=== PATIENT | male | born 1950 ===

== ENCOUNTER 2016-09-27 09:53 | Emergency (ER) | payer MEDICAID, OTHER ==
[2016-09-27 10:04] VITALS: TEMP 98
[2016-09-27] MEDS ORDERED: Albuterol-Ipratrop 3 mg / 0.5 (3 ml) UD INH STA ×2 (10:12→12:07)
[2016-09-27] MEDS ORDERED: Albuterol-Ipratrop 3 mg / 0.5 (3 ml) UD ONE ×2 (10:32→12:31)
[2016-09-27 10:45] LABS: BASO # 0.1 K/uL (0.0-0.2); EOS # 1.3 K/uL (0.0-0.7); EOS % 16.1 % (0.0-4.0); HEMATOCRIT 46.4 % (35.0-51.0); LYMPH # 1.6 K/uL (1.0-4.3); LYMPH % 20.1 % (20.0-40.0); MEAN CELL VOLUME 94.8 fl (80.0-94.0); MEAN CORPUSCULAR HEMOGLOBIN 31.6 pg (27.0-31.0); MEAN CORPUSCULAR HGB CONC 33.4 g/dL (33.0-37.0); MEAN PLATELET VOLUME 9.4 fl (7.2-11.7); MONO # 0.6 K/uL (0.0-0.8); NEUT # 4.3 K/uL (1.8-7.0); NEUT % 54.8 % (50.0-75.0); NRBC % 0.1 % (0.0-0.0); RED CELL DISTRIBUTION WIDTH 12.9 % (11.5-14.5); WHITE BLOOD COUNT 7.8 K/uL (4.8-10.8)
[2016-09-27 10:52] LABS: ALB/GLOB RATIO 1.8 (1.0-2.1); ALKALINE PHOSPHATASE 56 U/L (38-126); ALT/SGPT 38 U/L (21-72); AST/SGOT 25 U/L (17-59); BLOOD UREA NITROGEN 21 mg/dl (9-20); CALCIUM 9.3 mg/dL (8.4-10.2); CARBON DIOXIDE 23 mmol/L (22-30); CHLORIDE 106 mmol/L (98-107); GFR AFRICAN-AMERICAN > 60; GLUCOSE,RANDOM 93 mg/dL (75-110); SODIUM 140 mmol/l (132-148)
[2016-09-27 10:54] LABS: POTASSIUM 4.4 MMOL/L (3.6-5.0)
[2016-09-27 11:17] LABS: RBC URINE 3 /hpf (0-3); URINE BILIRUBIN NEGATIVE (NEGATIVE); URINE BLOOD NEGATIVE (NEGATIVE); URINE COLOR YELLOW (YELLOW); URINE GLUCOSE (UA) NEG (Normal); URINE KETONE NEGATIVE (NEGATIVE); URINE LEUKOCYTE ESTERASE NEG Leu/uL (Negative); URINE PROTEIN NEGATIVE (NEGATIVE); URINE UROBILINOGEN 0.2-1.0 mg/dL (0.2-1.0); WBC URINE 1 /hpf (0-5)
--- NOTE | 2016-09-27 12:11 | ED PDOC ---
HPI: CCC, URI, Sore Throat Time Seen by Provider: 09/27/16 10:07 Chief Complaint (Nursing): Cough, Cold, Congestion Chief Complaint (Provider): Cough, Cold, Congestion History Per: Patient History/Exam Limitations: no limitations Onset/Duration Of Symptoms: Days (x1 week) Current Symptoms Are (Timing): Still Present Additional Complaint(s): 66 y/o male presents to the emergency department with a complaint of an ongoing cough, shortness of breath, chest tightness, and left arm paraesthesia x1 week. Denies medications for the relief of symptoms, fever, syncope, or hemoptysis. Past Medical History Reviewed: Historical Data, Nursing Documentation, Vital Signs Vital Signs: Last Vital Signs Temp 98 F 09/27/16 10:02 Pulse 66 09/27/16 10:02 Resp 20 09/27/16 10:02 BP 144/84 09/27/16 10:02 Pulse Ox 98 09/27/16 14:31 - Medical History PMH: Denies: Diabetes, HTN - Surgical History Surgical History: Appendectomy - Family History Family History: States: Unknown Family Hx - Living Arrangements Living Arrangements: With Family - Social History Current smoker - smoking cessation education provided: No Ex-Smoker (has not smoked in the last 12 months): Yes Alcohol: None Drugs: Denies - Home Medications Home Medications: Ambulatory Orders Medication Instructions Recorded Benzonatate [Tessalon Perle] 100 mg PO TID PRN #30 capsule 06/17/16 Guaifenesin/Pseudoephedrne HCl 1 ter PO Q12H PRN #20 ter 06/17/16 [Mucinex D 600 mg-60 mg] - Allergies Allergies/Adverse Reactions: Allergies Allergy/AdvReac Type Severity Reaction Status Date / Time penicillin G Allergy RASH Verified 09/27/16 10:01 Review of Systems ROS Statement: Except As Marked, All Systems Reviewed And Found Negative Constitutional: Negative for: Fever Cardiovascular: Positive for: Other (chest tightness) Respiratory: Positive for: Cough, Shortness of Breath. Negative for: Hemoptysis Musculoskeletal: Positive for: Other (Left arm paraesthesia ) Neurological: Negative for: Other (syncope) Physical Exam - Reviewed Nursing Documentation Reviewed: Yes Vital Signs Reviewed: Yes - Physical Exam Appears: Positive for: Non-toxic, No Acute Distress Head Exam: Positive for: ATRAUMATIC, NORMOCEPHALIC Skin: Positive for: Normal Color, Warm, Dry ENT: Positive for: Normal ENT Inspection. Negative for: Pharyngeal Erythema Neck: Positive for: Normal, Supple Cardiovascular/Chest: Positive for: Regular Rate, Rhythm. Negative for: Murmur Respiratory: Positive for: Wheezing (trace wheeze at b/l lung bases). Negative for: Accessory Muscle Use, Respiratory Distress Gastrointestinal/Abdominal: Positive for: Normal Exam, Soft. Negative for: Tenderness Extremity: Positive for: Normal ROM. Negative for: Pedal Edema Neurologic/Psych: Positive for: Alert, Oriented - Laboratory Results Result Diagrams: 09/27/16 10:38 09/27/16 10:38 - ECG O2 Sat by Pulse Oximetry: 98 (RA) Pulse Ox Interpretation: Normal Medical Decision Making Medical Decision Making: Time: 10:07 Initial impression: Cough Initial plan: --Chest Two X-ray (PA/LAT) (RAD) --Duoneb 3 mg/0.5 mg (3ml) UD --Peak Flow PRE/POST TX --Gave Duoneb with some improvement of symptoms. Troponin was ordered with a second duoneb treatment. -- Chest x-ray shows chronic appearing changes since last x-ray which was completed on Jun 17 2016. Time: 12:07 --Troponin I Stat --Duoneb 3 mg/0.5 mg (3ml) UD --Ekg: sinus at 68 bpm with no acute ST changes. --Blood work was performed and unremarkable. --BNP and urine was was unremarkable. Time: 14:31 --Troponin results were negative. --Discharged and referred to clinic for possible pulmonary disease. Scribe Attestation: Documented by Renetta Lockwood, acting as a scribe for Андрей Alonso MD. Provider Scribe Attestation: All medical record entries made by the Scribe were at my direction and personally dictated by me. I have reviewed the chart and agree that the record accurately reflects my personal performance of the history, physical exam, medical decision making, and the department course for this patient. I have also personally directed, reviewed, and agree with the discharge instructions and disposition. Disposition - Clinical Impression Clinical Impression: Cough Counseled Patient/Family Regarding: Studies Performed, Diagnosis, Rx Given - Disposition Disposition: Routine/Home Disposition Time: 14:31 Condition: STABLE
--- NOTE | 2016-09-27 13:34 | RAD ---
HISTORY: cough COMPARISON: 06/17/2016. TECHNIQUE: Chest PA and lateral FINDINGS: LUNGS: No active pulmonary disease. PLEURA: No significant pleural effusion identified. No pneumothorax apparent. CARDIOVASCULAR: No radiographic findings to suggest acute or significant cardiovascular disease. OSSEOUS STRUCTURES: No significant abnormalities. VISUALIZED UPPER ABDOMEN: Normal. OTHER FINDINGS: None. IMPRESSION: No active disease. No significant interval change compared to the prior examination(s).
[2016-09-27 15:01] VITALS: BP 130/93; PULSE 74; RESP 19; O2SAT 96
--- NOTE | 2016-10-02 09:36 | CARD ---
APPROVED REPORT EKG Measurement Heart [id number] <Conclusion> Normal sinus rhythm Normal ECG
== END 2016-09-27 15:01 | disposition home or self-care (01) ==
LOC: H.ER 09:53
DX: R05 Cough (principal); Z87.891 Personal history of nicotine dependence; Z88.0 Allergy status to penicillin

== ENCOUNTER 2016-10-09 16:01 | Emergency (ER) | payer OTHER ==
[2016-10-09 16:14] VITALS: BP 151/90; PULSE 71; RESP 16; TEMP 98.6
[2016-10-09] MEDS ORDERED: Albuterol-Ipratrop 3 mg / 0.5 (3 ml) UD ONE (16:31)
[2016-10-09] MEDS: Albuterol-Ipratrop 3 mg / 0.5 (3 ml) UD INH STA (16:40)
--- NOTE | 2016-10-09 17:01 | ED PDOC ---
HPI: SOB/CHF/COPD Time Seen by Provider: 10/09/16 16:20 Chief Complaint (Nursing): Cough, Cold, Congestion Chief Complaint (Provider): Shortness of Breath History Per: Patient History/Exam Limitations: no limitations Onset/Duration Of Symptoms: Days (14 days) Current Symptoms Are (Timing): Still Present Additional Complaint(s): Ernesto Castro, a 66 year old male, presents to the ED complaining of shortness of breath. The patient states that he has been experiencing these symptoms intermittently for the past 2 weeks. He reports that he was seen here at [facility] last week and was prescribed albuterol which offers relief but they ran out. The patient states that he has an appointment with the clinic but that isn't for another 2 days. The patient also reports a cough productive of clear sputum. Denies hemoptysis, rhinorrhea, fever, chills, leg swelling. Reports chest tightness. Of note, patient does not have a regular PMD and will be seen in the clinic for the first time on . Past Medical History Reviewed: Historical Data, Nursing Documentation, Vital Signs Vital Signs: Last Vital Signs Temp 98.6 F 10/09/16 16:11 Pulse 71 10/09/16 16:11 Resp 16 10/09/16 16:11 BP 151/90 H 10/09/16 16:11 Pulse Ox 97 10/09/16 17:09 - Medical History PMH: Denies: Diabetes, HTN - Surgical History Surgical History: Appendectomy - Family History Family History: States: Unknown Family Hx - Social History Current smoker - smoking cessation education provided: No Ex-Smoker (has not smoked in the last 12 months): No (Was a smoker for a really long time, only quit 2 months ago.) Alcohol: None Drugs: Denies - Home Medications Home Medications: Ambulatory Orders Medication Instructions Recorded Benzonatate [Tessalon Perle] 100 mg PO TID PRN #30 capsule 06/17/16 Guaifenesin/Pseudoephedrne HCl 1 ter PO Q12H PRN #20 ter 06/17/16 [Mucinex D 600 mg-60 mg] Albuterol 0.083% [Albuterol 0.083% 2.5 mg IH Q4 PRN #20 neb 09/27/16 Inhal Carla (2.5 mg/3 ml) UD] Albuterol HFA [Ventolin HFA 90 1 - 2 puff IH Q4 PRN #1 inhaler 09/27/16 mcg/actuation (8 g)] Mask, Face [Nebulizer Aerosol Mask 1 dev XX PRN PRN #1 dev 09/27/16 Adult] Nebulizer Accessories [A.i.r.s. 1 each PRN PRN #1 kit 09/27/16 Nebulizer] Nebulizer [Aeroneb Go Nebulizer] 1 each PRN PRN #1 each 09/27/16 Prednisone 50 mg PO DAILY #4 tab 09/27/16 Albuterol 0.083% [Albuterol 0.083% 2.5 mg IH Q4 PRN #20 neb 10/01/16 Inhal Carla (2.5 mg/3 ml) UD] Albuterol 0.083% [Albuterol 3 ml IH Q4 PRN #50 neb 10/09/16 Sulfate 3 Ml] Fexofenadine HCl [LucyNf] 180 mg PO DAILY #30 tab 10/09/16 Fluticasone Propionate [Flonase] 1 spr NS DAILY #1 bot 10/09/16 - Allergies Allergies/Adverse Reactions: Allergies Allergy/AdvReac Type Severity Reaction Status Date / Time penicillin G Allergy RASH Verified 10/09/16 16:11 Review of Systems ROS Statement: Except As Marked, All Systems Reviewed And Found Negative Constitutional: Negative for: Fever, Chills ENT: Positive for: Other (Denies rhinnorea) Respiratory: Positive for: Cough (Cough productive of clear sputum), Other ( Reports chest tighntness). Negative for: Hemoptysis Musculoskeletal: Positive for: Other (Denies leg swelling) Physical Exam - Reviewed Nursing Documentation Reviewed: Yes Vital Signs Reviewed: Yes - Physical Exam Appears: Positive for: Non-toxic, No Acute Distress Head Exam: Positive for: ATRAUMATIC, NORMOCEPHALIC Skin: Positive for: Normal Color, Warm, Dry Eye Exam: Positive for: Normal appearance, EOMI, PERRL ENT: Positive for: Normal ENT Inspection Neck: Positive for: Normal, Painless ROM, Supple Cardiovascular/Chest: Positive for: Regular Rate, Rhythm, Chest Non Tender, Tachycardia Respiratory: Positive for: Rhonchi (Faint rhonchi bilaterally), Respiratory Distress (Mild respiratory distress.). Negative for: Accessory Muscle Use, Rales, Wheezing Gastrointestinal/Abdominal: Positive for: Normal Exam, Bowel Sounds, Soft. Negative for: Tenderness, Guarding, Rebound Back: Positive for: Normal Inspection Extremity: Positive for: Normal ROM, Tenderness. Negative for: Pedal Edema, Deformity, Swelling Neurologic/Psych: Positive for: Alert, Oriented, Gait - ECG O2 Sat by Pulse Oximetry: 97 (RA) Pulse Ox Interpretation: Normal - Progress Re-evaluation Time: 17:00 Condition: Improved Medical Decision Making Medical Decision Makin:20 Initial Impression: 66 year old male presenting with COPD exacerbation Initial Plan: * Duoneb 3mg/0.5 mg (3ml) UD * Solu-Medrol 125mg IM * Peak Flow pre/post Tx .Pre/post teatment * Reevaluation Scribe Attestation Documented by Nette Valdes acting as a scribe for Leigh Braswell MD. Provider Attestation All medical record entries made by the Scribe were at my direction and personally dictated by me. I have reviewed the chart and agree that the record accurately reflects my personal performance of the history, physical exam, medical decision making, and the department course for this patient. I have also personally directed, reviewed, and agree with the discharge instructions and disposition. Disposition - Clinical Impression Clinical Impression: COPD (chronic obstructive pulmonary disease) Counseled Patient/Family Regarding: Diagnosis, Need For Followup, Rx Given - Disposition Referrals: [facility] [Outside] [facility] [Outside] - 10/11/16 Disposition: Routine/Home Disposition Time: 17:00 Condition: IMPROVED Prescriptions: Albuterol 0.083% [Albuterol Sulfate 3 Ml] 3 ml IH Q4 PRN #50 neb PRN Reason: asthma Fexofenadine HCl [LucyNf] 180 mg PO DAILY #30 tab Fluticasone Propionate [Flonase] 1 spr NS DAILY #1 bot Instructions: COPD (Chronic Obstructive Pulmonary Disease) (ED) Print Language: GAMBIAN
[2016-10-09 18:20] VITALS: O2SAT 99
== END 2016-10-09 18:20 | disposition home or self-care (01) ==
LOC: H.ER 16:01
DX: J44.9 Chronic obstructive pulmonary disease, unspecified (principal)

== ENCOUNTER 2016-10-26 19:35 | Emergency (ER) | payer MEDICAID, SELFPAY ==
[2016-10-26 19:49] VITALS: BP 139/91; PULSE 71; RESP 20; TEMP 98.5; O2SAT 95
[2016-10-26] MEDS ORDERED: Albuterol-Ipratrop 3 mg / 0.5 (3 ml) UD ONE (20:22)
[2016-10-26] MEDS ORDERED: Albuterol-Ipratrop 3 mg / 0.5 (3 ml) UD INH STA ×2 (20:23→20:24)
--- NOTE | 2016-10-26 22:16 | ED PDOC ---
HPI:Nausea, Vomiting, Diarrhea Time Seen by Provider: 10/26/16 19:54 Chief Complaint (Nursing): Cough, Cold, Congestion Chief Complaint (Provider): Wheezing History Per: Patient History/Exam Limitations: no limitations Onset/Duration Of Symptoms: Days Current Symptoms Are (Timing): Still Present Additional Complaint(s): 66 y/o male with a past medical history of chronic obstructive pulmonary disorder with a complaint of wheezing, cough, white sputum, and shortness of breath x1 month. Patient states he had expeirneced symptoms ever since he ran out of nebulizer medications 1 month ago and pump does not help at all. Reports he had tried getting an appointment at the clinic for albuterol refills but he cannot get a hold of an appointment. Denies fever and chills. Past Medical History Reviewed: Historical Data, Nursing Documentation, Vital Signs Vital Signs: Last Vital Signs Temp 98.5 F 10/26/16 19:45 Pulse 71 10/26/16 19:45 Resp 20 10/26/16 19:45 BP 139/91 H 10/26/16 19:45 Pulse Ox 95 10/26/16 19:45 - Medical History PMH: Asthma Denies: Diabetes, HTN - Surgical History Surgical History: Appendectomy - Family History Family History: States: Unknown Family Hx - Home Medications Home Medications: Ambulatory Orders Medication Instructions Recorded Benzonatate [Tessalon Perle] 100 mg PO TID PRN #30 capsule 06/17/16 Guaifenesin/Pseudoephedrne HCl 1 ter PO Q12H PRN #20 ter 06/17/16 [Mucinex D 600 mg-60 mg] Albuterol 0.083% [Albuterol 0.083% 2.5 mg IH Q4 PRN #20 neb 09/27/16 Inhal Carla (2.5 mg/3 ml) UD] Albuterol HFA [Ventolin HFA 90 1 - 2 puff IH Q4 PRN #1 inhaler 09/27/16 mcg/actuation (8 g)] Mask, Face [Nebulizer Aerosol Mask 1 dev XX PRN PRN #1 dev 09/27/16 Adult] Nebulizer Accessories [A.i.r.s. 1 each MC PRN PRN #1 kit 09/27/16 Nebulizer] Nebulizer [Aeroneb Go Nebulizer] 1 each MC PRN PRN #1 each 09/27/16 Prednisone 50 mg PO DAILY #4 tab 09/27/16 Albuterol 0.083% [Albuterol 0.083% 2.5 mg IH Q4 PRN #20 neb 10/01/16 Inhal Carla (2.5 mg/3 ml) UD] Albuterol 0.083% [Albuterol 3 ml IH Q4 PRN #50 neb 10/09/16 Sulfate 3 Ml] Fexofenadine HCl [LucyNf] 180 mg PO DAILY #30 tab 10/09/16 Fluticasone Propionate [Flonase] 1 spr NS DAILY #1 bot 10/09/16 Albuterol 0.083% [Albuterol 0.083% 2.5 mg IH Q4 #30 neb 10/26/16 Inhal Carla (2.5 mg/3 ml) UD] predniSONE [predniSONE Tab] 60 mg PO DAILY #9 tab 10/26/16 - Allergies Allergies/Adverse Reactions: Allergies Allergy/AdvReac Type Severity Reaction Status Date / Time penicillin G Allergy RASH Verified 10/09/16 16:11 Review of Systems ROS Statement: Except As Marked, All Systems Reviewed And Found Negative Constitutional: Negative for: Fever, Chills Respiratory: Positive for: Cough, Shortness of Breath, Sputum (White), Wheezing Physical Exam - Reviewed Nursing Documentation Reviewed: Yes Vital Signs Reviewed: Yes - Physical Exam Appears: Positive for: Non-toxic, No Acute Distress Head Exam: Positive for: ATRAUMATIC, NORMAL INSPECTION, NORMOCEPHALIC Skin: Positive for: Normal Color, Warm, Dry ENT: Positive for: Normal ENT Inspection. Negative for: Pharyngeal Erythema Neck: Positive for: Normal, Supple Cardiovascular/Chest: Positive for: Regular Rate, Rhythm. Negative for: Murmur Respiratory: Positive for: Wheezing (Mild inspiratory and expiratory wheezing). Negative for: Normal Breath Sounds, Accessory Muscle Use, Respiratory Distress Extremity: Positive for: Normal ROM. Negative for: Pedal Edema Neurologic/Psych: Positive for: Alert, Oriented - ECG O2 Sat by Pulse Oximetry: 95 (RA) Pulse Ox Interpretation: Normal Medical Decision Making Medical Decision Making: Time: 19:49 Initial impression: Mild chronic obstructive pulmonary disease exacerbation Initial plan: --Electrocardiogram STAT --EKG-ED (EDNURTX) --Chest Two Views (RAD) --Duoneb 3mg/0.5mg (3 ml) UD --Duoneb 3mg/0.5mg (3 ml) UD --Prednisone 60 mg PO --Peak Flow Pre/Post TX --Peak Flow Pre/Post TX --Reevaluation Time: 22:05 --Patient feels better and wheezing is completely gone. Upon provider reevaluation patient is feeling better, is medically stable, and requires no further treatment in the ED at this time. Patient will be discharged home with Rx for Albuterol 0.083% 2.5 mg/3ml and prednisone 60 mg. Counseling was provided and all questions were answered regarding diagnosis and need for follow up with primary care physician or clinic. There is agreement to discharge plan. Return if symptoms persist or worsen. Clinical Impression: Chronic Obstructive Pulmonary Disease Scribe Attestation: Documented by Renetta Lockwood, acting as a scribe for Lalito Canela MD. Provider Scribe Attestation: All medical record entries made by the Scribe were at my direction and personally dictated by me. I have reviewed the chart and agree that the record accurately reflects my personal performance of the history, physical exam, medical decision making, and the department course for this patient. I have also personally directed, reviewed, and agree with the discharge instructions and disposition. Disposition - Clinical Impression Clinical Impression: COPD (chronic obstructive pulmonary disease) - Patient ED Disposition Is Patient to be Admitted: No Counseled Patient/Family Regarding: Diagnosis, Need For Followup, Rx Given - Disposition Disposition: Routine/Home Disposition Time: 22:05 Condition: STABLE Prescriptions: Albuterol 0.083% [Albuterol 0.083% Inhal Carla (2.5 mg/3 ml) UD] 2.5 mg IH Q4 #30 neb predniSONE [predniSONE Tab] 60 mg PO DAILY #9 tab Instructions: COPD (Chronic Obstructive Pulmonary Disease) (ED), Wheezing (ED) Print Language: KYRGYZ
--- NOTE | 2016-10-27 07:38 | RAD ---
HISTORY: cough, sob, hx of asthma COMPARISON: 06/17/2016 TECHNIQUE: Chest PA and lateral FINDINGS: LUNGS: No active pulmonary disease. 3 millimeter nodule in the left midlung zone. PLEURA: No significant pleural effusion identified. No pneumothorax apparent. CARDIOVASCULAR: Normal. OSSEOUS STRUCTURES: No significant abnormalities. VISUALIZED UPPER ABDOMEN: Normal. OTHER FINDINGS: None. IMPRESSION: 3 millimeter nodule in the left midlung zone, unchanged from prior exam.
--- NOTE | 2016-10-29 07:01 | CARD ---
APPROVED REPORT EKG Measurement Heart [id number] 160P66 [id number] <Conclusion> Normal sinus rhythm Normal ECG
== END 2016-10-26 22:00 | disposition home or self-care (01) ==
LOC: H.ER 19:35
DX: J44.1 Chronic obstructive pulmonary disease with (acute) exacerbation (principal); Z88.0 Allergy status to penicillin